=== PATIENT | male | born 1985 | race Caucasian/White ===

== ENCOUNTER → 2017-06-11 | Outpatient (CLI) | payer BC ==
[2017-06-11 13:24] LABS: BENZODIAZEPINE, URINE NEG (NEG); COCAINE,URINE NEG (NEG); PHENCYCLIDINE, URINE NEG (NEG)
== END | disposition home or self-care (01) ==
LOC: C.LAB1850 11:21
PROVIDERS: ATTEND Psychiatry & Neurology Psychiatry
DX: F90.0 Attention-deficit hyperactivity disorder, predominantly inattentive type (principal)

== ENCOUNTER → 2017-08-11 | Outpatient (CLI) | payer BC ==
--- NOTE | 2017-08-11 15:02 | DIAGNOSTIC IMAGING REPORT ---
R ANKLE MIN 3 VIEWS ROUTINE CLINICAL HISTORY: Right ankle pain. COMPARISON: None FINDINGS: Alignment of the right ankle is anatomic. Talar dome is intact. No fracture or osseous lesion is present. Joint spaces are preserved. There may be an os trigonum. IMPRESSION: Unremarkable right ankle radiographs. Electronically signed by: Olivier Peck M.D. 08/11/2017 3:01 PM Dictated Date/Time: 08/11/2017 3:00 PM
--- NOTE | 2017-08-11 15:09 | DIAGNOSTIC IMAGING REPORT ---
R FOOT MIN 3 VIEWS ROUTINE CLINICAL HISTORY: M79.671 Foot pain, [id number] pain COMPARISON: None. DISCUSSION: Small bony exostosis base first metatarsal. Subtalar joint is intact. Osseous structures are unremarkable. There is no evidence for soft tissue swelling. IMPRESSION: Minimal bony exostosis change as described. No acute process. The above report was generated using voice recognition software. It may contain grammatical, syntax or spelling errors. Electronically signed by: Dwayne Figueroa M.D. 08/11/2017 3:08 PM Dictated Date/Time: 08/11/2017 3:07 PM
== END | disposition home or self-care (01) ==
LOC: C.RAD1850 14:50
PROVIDERS: ATTEND Physician Assistant Medical
DX: M79.671 Pain in right foot (principal)

== ENCOUNTER → 2017-08-15 | Outpatient (CLI) | payer BC ==
--- NOTE | 2017-08-15 13:46 | DIAGNOSTIC IMAGING REPORT ---
BONE SCAN LIMITED (NM) CLINICAL HISTORY: M79.671 persistent right foot pain. Evaluate for stress fracture. COMPARISON STUDY: Conventional radiographic study dated 08/11/2017 FINDINGS: The patient was injected with 27.2 mCi of technetium 99m MDP. Three-hour delayed images of both feet were acquired. There is a focus of very subtle increased activity which appears to localize to the base of the fourth metatarsal or fourth tarsal metatarsal joint. There are no corresponding conventional radiographic abnormalities. IMPRESSION: Very subtle focus of increased activity, which appears to localize to the base the fourth metatarsal or fourth tarsal metatarsal joint. Please correlate with the patient's site of pain. Given the history, this is likely on an arthritic or stress induced basis Electronically signed by: Ean Wu M.D. 08/15/2017 1:45 PM Dictated Date/Time: 08/15/2017 1:42 PM
== END | disposition home or self-care (01) ==
LOC: C.NUCL 09:49
PROVIDERS: ATTEND Physician Assistant Medical
DX: M79.671 Pain in right foot (principal)

== ENCOUNTER → 2017-10-22 | Outpatient (CLI) | payer BC | LOC: C.RDSM 17:13 | PROVIDERS: ATTEND Orthopaedic Surgery | DX: S92.901A Unspecified fracture of right foot, initial encounter for closed fracture (principal); X58.XXXA Exposure to other specified factors, initial encounter ==